=== PATIENT | female | born 1970 | race Caucasian/White ===

== ENCOUNTER 2019-04-17 16:21 | Emergency (ER) | payer MEDICAID, OTHER ==
[~2019-04-17] VITALS: Ht 172.7 cm; Wt 59.0 kg
[2019-04-17] MEDS ORDERED: NS IV 1000 ML 1,000 ML IV SCH (17:00)
[2019-04-17] MEDS ORDERED: ONDANSETRON 4 MG/2 ML (SDV) Z0FRAN IVP ONE (17:00)
[2019-04-17] MEDS ORDERED: KETOROLAC 30 MG/ML VIAL IVP ONE (17:00)
--- NOTE | 2019-04-17 17:00 | NUR ---
PATIENT HAS AREA ON CONCERN ON R LEG NO REDNESS OR SWELLING AT SITE. Addendum: 04/17/19 at 1751 by PMCCLURE C/O HEADACHE AND NECK HURTING.
--- NOTE | 2019-04-17 17:04 | ED Integumentary General ---
General Chief Complaint: Bite-Animal/Human/Insect Stated Complaint: HEADACHE,BUG BITE Nursing Triage Note: bug bites to both legs. x 1-2 weeks. also c/o h/a fever nausea and joint pains. thinks she has " melaria". Source: patient Exam Limitations: no limitations History of Present Illness Date Seen by Provider: Apr 17, 2019 Time Seen by Provider: 16:59 Initial Comments To ER with multiple insect bites to the lower extremities that are scabbed over contributing to her headaches joint pain nausea malaise. She states these are from insects about 2-3 weeks ago. She's been living in [facility] for 1-2 months after moving here from [place]. 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 She has an accent and claims this is from growing up in [place]. She has a headache, joint pains nausea diarrhea and general malaise. She reports that she has had a tick bite, this could also be malaria or West Nile virus (she has not traveled outside the country in many years). She wears a thumb spica brace on the right wrist and takes Keppra for complex regional pain syndrome in the right wrist where she wears the brace. She is wearing a winter coat on arrival on April 17. She arrives with a duffel bag and a diary. Timing/Duration: constant Severity: moderate Location: extremities Associated Symptoms: denies symptoms Allergies and Home Medications Allergies Coded Allergies: diphenhydramine (Verified Allergy, Unknown, 04/17/19) epinephrine (Verified Allergy, Unknown, 04/17/19) hydrocodone (Verified Allergy, Unknown, 04/17/19) iodine (Verified Allergy, Unknown, 04/17/19) Uncoded Allergies: eggs (Allergy, Unknown, 04/17/19) penicillin (Allergy, Unknown, 04/17/19) Home Medications Doxycycline Hyclate 100 Mg Tablet, 100 MG PO BID Prescribed by: MELISSA MARINA on 04/17/19 [id number] Patient Home Medication List Home Medication List Reviewed: Yes Review of Systems Review of Systems Constitutional: see HPI, chills, malaise, weakness EENTM: see HPI Respiratory: no symptoms reported Cardiovascular: no symptoms reported Genitourinary: no symptoms reported Musculoskeletal: see HPI, joint pain Skin: see HPI, rash Psychiatric/Neurological: No Symptoms Reported Endocrine: No Symptoms Reported Hematologic/Lymphatic: No Symptoms Reported Past Nuwdyiq-Ztzppl-Sqpjdm Hx Patient Social History Alcohol Use: Denies Use Recreational Drug Use: No Smoking Status: Never a Smoker Recent Foreign Travel: No Contact w/Someone Who Travel: No Recent Infectious Disease Expo: No Physical Abuse: No Sexual Abuse: No Physical Exam Vital Signs Vital Signs - First Documented 04/17/19 16:35 Temp 96.5 Pulse 64 Resp 20 B/P (MAP) 113/72 (86) Pulse Ox 98 O2 Delivery Room Air Capillary Refill : Less Than 3 Seconds General Appearance: WD/WN, no apparent distress, other (very pleasant, her presentation and self-reported history is a bit grandiose and somewhat bizarre.) HEENT: PERRL/EOMI, normal ENT inspection, TMs normal Neck: non-tender, full range of motion; No lymphadenopathy (R), No lymphad enopathy (L) Respiratory: normal breath sounds, no respiratory distress, no accessory muscle use Gastrointestinal: normal bowel sounds, non tender Neurologic/Psychiatric: alert, normal mood/affect, oriented x 3 Skin: normal color, warm/dry, other (a few scabbed over slightly erythematous wounds no larger than a half centimeters to the anterior lower legs bilaterally) Skin Problem Location: lower extremities Progress/Results/Core Measures Results/Orders Lab Results Laboratory Tests Test 04/17/19 16:57 04/17/19 17:00 Range/Units Urine Color YELLOW Urine Clarity CLEAR Urine pH 7 5-9 Urine Specific Muir 1.010 L 1.016-1.022 Urine Protein NEGATIVE NEGATIVE Urine Glucose (UA) NEGATIVE NEGATIVE Urine Ketones 1+ H NEGATIVE Urine Nitrite NEGATIVE NEGATIVE Urine Bilirubin NEGATIVE NEGATIVE Urine Urobilinogen NORMAL NORMAL MG/DL Urine Leukocyte Esterase 1+ H NEGATIVE Urine RBC (Auto) 3+ H NEGATIVE Urine RBC 10-25 H /HPF Urine WBC 2-5 /HPF Urine Squamous Epithelial Cells 5-10 /HPF Urine Crystals NONE /LPF Urine Bacteria FEW H /HPF Urine Casts NONE /LPF Urine Mucus NEGATIVE /LPF Urine Culture Indicated YES Urine Test NEGATIVE NEGATIVE Urine Opiates Screen NEGATIVE NEGATIVE Urine Oxycodone Screen NEGATIVE NEGATIVE Urine Methadone Screen NEGATIVE NEGATIVE Urine Propoxyphene Screen NEGATIVE NEGATIVE Urine Barbiturates Screen NEGATIVE NEGATIVE Ur Tricyclic Antidepressants Screen NEGATIVE NEGATIVE Urine Phencyclidine Screen NEGATIVE NEGATIVE Urine Amphetamines Screen NEGATIVE NEGATIVE Urine Methamphetamines Screen NEGATIVE NEGATIVE Urine Benzodiazepines Screen NEGATIVE NEGATIVE Urine Cocaine Screen NEGATIVE NEGATIVE Urine Cannabinoids Screen NEGATIVE NEGATIVE White Blood Count 8.9 4.3-11.0 10^3/uL Red Blood Count 4.59 4.35-5.85 10^6/uL Hemoglobin 13.2 11.5-16.0 G/DL Hematocrit 40 35-52 % Mean Corpuscular Volume 86 80-99 FL Mean Corpuscular Hemoglobin 29 25-34 PG Mean Corpuscular Hemoglobin Concent 33 32-36 G/DL Red Cell Distribution Width 12.9 10.0-14.5 % Platelet Count 288 130-400 10^3/uL Mean Platelet Volume 9.7 7.4-10.4 FL Neutrophils (%) (Auto) 55 42-75 % Lymphocytes (%) (Auto) 33 12-44 % Monocytes (%) (Auto) 10 0-12 % Eosinophils (%) (Auto) 2 0-10 % Basophils (%) (Auto) 0 0-10 % Neutrophils # (Auto) 4.9 1.8-7.8 X 10^3 Lymphocytes # (Auto) 3.0 1.0-4.0 X 10^3 Monocytes # (Auto) 0.8 0.0-1.0 X 10^3 Eosinophils # (Auto) 0.2 0.0-0.3 10^3/uL Basophils # (Auto) 0.0 0.0-0.1 10^3/uL Sodium Level 140 135-145 MMOL/L Potassium Level 3.9 3.6-5.0 MMOL/L Chloride Level 110 H 98-107 MMOL/L Carbon Dioxide Level 20 L 21-32 MMOL/L Anion Gap 10 5-14 MMOL/L Blood Urea Nitrogen 14 7-18 MG/DL Creatinine 0.74 0.60-1.30 MG/DL Estimat Glomerular Filtration Rate > 60 BUN/Creatinine Ratio 19 Glucose Level 99 70-105 MG/DL Calcium Level 9.3 8.5-10.1 MG/DL Corrected Calcium 9.1 8.5-10.1 MG/DL Total Bilirubin 0.2 0.1-1.0 MG/DL Aspartate Amino Transf (AST/SGOT) 18 5-34 U/L Alanine Aminotransferase (ALT/SGPT) 21 0-55 U/L Alkaline Phosphatase 63 40-136 U/L C-Reactive Protein High Sensitivity 0.21 0.00-0.50 MG/DL Total Protein 7.5 6.4-8.2 GM/DL Albumin 4.3 3.2-4.5 GM/DL My Orders Orders - MELISSA MARINA APRN Ua Culture If Indicated (04/17/19 16:46) Drug Screen Stat (Urine) (04/17/19 16:46) Cbc With Automated Diff (04/17/19 16:46) Comprehensive Metabolic Panel (04/17/19 16:46) West Nile Virus Igg & M (04/17/19 16:46) Tick Panel With Lyme Eia (04/17/19 16:46) Ns Iv 1000 Ml (Sodium Chloride 0.9%) (04/17/19 17:00) Ondansetron Injection (Zofran Injectio (04/17/19 17:00) Ketorolac Injection (Toradol Injection) (04/17/19 17:00) Urine Culture (04/17/19 16:57) Erythrocyte Sedimentation Rate (04/17/19 17:33) Hs C Reactive Protein (04/17/19 17:33) Hcg,Qualitative Urine (04/17/19 17:37) Ct Head Wo (04/17/19 17:38) Medications Given in ED Current Medications Medications Dose Ordered Sig/Syed Route Start Time Stop Time Status Last Admin Dose Admin Ketorolac Tromethamine 15 mg ONCE ONCE IVP 04/17/19 17:00 04/17/19 17:01 DC 04/17/19 17:10 15 MG Ondansetron HCl 8 mg ONCE ONCE IVP 04/17/19 17:00 04/17/19 17:01 DC 04/17/19 17:09 8 MG Vital Signs/I&O 04/17/19 16:35 Temp 96.5 Pulse 64 Resp 20 B/P (MAP) 113/72 (86) Pulse Ox 98 O2 Delivery Room Air Blood Pressure Mean: 86 Departure Communication (Admissions) She states that she has been taking the metronidazole left over for the past 2 days which has helped quite a bit with her diarrhea. Impression Primary Impression: general malaise Additional Impressions: Joint pain Qualified Codes: M25.50 - Pain in unspecified joint Insect bite Qualified Codes: S80.869A - Insect bite (nonvenomous), unspecified lower leg, initial encounter; W57.XXXA - Bitten or stung by nonvenomous insect and other nonvenomous arthropods, initial encounter Disposition: 01 HOME, SELF-CARE Condition: Stable Departure-Patient Inst. Decision time for Depature: 17:34 Referrals: MARYBEL GIRON MD,LORENZO FRAZIER,NELIA DILLON,JESSY OLVERA,LOCAL PHYSICIAN (PCP) Primary Care Physician DEE DOSHI MD,JAZIEL REDDY,GUNNAR WOOD Patient Instructions: Insect Bites and Stings Add. Discharge Instructions: 1. The West Nile virus and tick panel take a few days to come back. We will call you if these are positive. Take antibiotics as directed in the meantime. Follow- up with one of the physicians listed. All discharge instructions reviewed with patient and/or family. Voiced understanding. Scripts Metronidazole (Metronidazole) 500 Mg Tablet 500 MG PO TID, #14 TAB 0 Refills Prov: MELISSA MARINA APRN 04/17/19 Doxycycline Hyclate (Doxycycline Hyclate) 100 Mg Tablet 100 MG PO BID, #20 TAB 0 Refills Prov: MELISSA MARINA APRN 04/17/19 MELISSA MARINA APRN Apr 17, 2019 17:04
[2019-04-17 17:08] LABS: BILIRUBIN,URINE NEGATIVE (NEGATIVE); CLARITY,URINE CLEAR; COLOR,URINE YELLOW; GLUCOSE, URINE (UA) NEGATIVE (NEGATIVE); KETONES,URINE 1+ (NEGATIVE); LEUKOCYTE ESTERASE ,URINE 1+ (NEGATIVE); NITRITE,URINE NEGATIVE (NEGATIVE); PH,URINE 7 (5-9); PROTEIN,URINE NEGATIVE (NEGATIVE); UROBILINOGEN,URINE NORMAL (NORMAL)
[2019-04-17 17:10] LABS: BASOPHILS % (AUTO) 0 % (0-10); EOSINOPHILS # (AUTO) 0.2 10^3/uL (0.0-0.3); EOSINOPHILS % (AUTO) 2 % (0-10); HEMATOCRIT 40 % (35-52); HEMOGLOBIN 13.2 G/DL (11.5-16.0); LYMPHOCYTES % (AUTO) 33 % (12-44); MEAN CORPUSCULAR HEMOGLOBIN 29 PG (25-34); MEAN CORPUSCULAR HGB CONC 33 G/DL (32-36); MEAN CORPUSCULAR VOLUME 86 FL (80-99); MEAN PLATELET VOLUME 9.7 FL (7.4-10.4); MONOCYTES # (AUTO) 0.8 X 10^3 (0.0-1.0); MONOCYTES % (AUTO) 10 % (0-12); NEUTROPHILS # (AUTO) 4.9 X 10^3 (1.8-7.8); NEUTROPHILS % (AUTO) 55 % (42-75); PLATELET COUNT 288 10^3/uL (130-400); RED CELL DISTRIBUTION WIDTH 12.9 % (10.0-14.5); WHITE BLOOD COUNT 8.9 10^3/uL (4.3-11.0)
[2019-04-17 17:20] LABS: BACTERIA,URINE FEW /HPF
[2019-04-17 17:23] LABS: AMPHETAMINE SCREEN, URINE NEGATIVE (NEGATIVE); BARBITURATE SCREEN URINE NEGATIVE (NEGATIVE); BENZODIAZEPINES SCREEN URINE NEGATIVE (NEGATIVE); CANNABINOID SCREEN, URINE NEGATIVE (NEGATIVE); COCAINE SCREEN URINE NEGATIVE (NEGATIVE); METHADONE STAT NEGATIVE (NEGATIVE); METHAMPHETAMINE SCREEN URINE S NEGATIVE (NEGATIVE); OPIATE SCREEN URINE NEGATIVE (NEGATIVE); OXYCODONE STAT NEGATIVE (NEGATIVE); PROPOXYPHENE STAT NEGATIVE (NEGATIVE); TRICYCLIC ANTIDEPRESSANTS SCRE NEGATIVE (NEGATIVE)
[2019-04-17 17:28] LABS: ALANINE AMINOTRANSFERASE 21 U/L (0-55); ALBUMIN 4.3 GM/DL (3.2-4.5); ALKALINE PHOSPHATASE 63 U/L (40-136); BILIRUBIN,TOTAL 0.2 MG/DL (0.1-1.0); BUN/CREATININE RATIO 19; CALCIUM 9.3 MG/DL (8.5-10.1); CARBON DIOXIDE 20 MMOL/L (21-32); CHLORIDE 110 MMOL/L (98-107); CREATININE SERUM 0.74 MG/DL (0.60-1.30); GFR ESTIMATED > 60; GLUCOSE 99 MG/DL (70-105); POTASSIUM 3.9 MMOL/L (3.6-5.0); SODIUM 140 MMOL/L (135-145); TOTAL PROTEIN 7.5 GM/DL (6.4-8.2)
--- NOTE | 2019-04-17 17:34 | NUR ---
TO ROOM FLUIDS INFUISNG REPORTS THAT HEADACHE BETTER.
[2019-04-17] MEDS ORDERED: DOXY100T2 PO (17:36)
--- NOTE | 2019-04-17 17:50 | NUR ---
TO CT PER W/C
[2019-04-17] MEDS ORDERED: METR-145 PO (17:54)
[2019-04-17 18:37] VITALS: BP 121/62
--- NOTE | 2019-04-17 18:40 | Diagnostic Imaging Report ---
PROCEDURE: CT head without contrast. TECHNIQUE: Multiple contiguous axial images were obtained through the brain without the use of intravenous contrast. Auto Exposure Controls were utilized during the CT exam to meet ALARA standards for radiation dose reduction. INDICATION: 48-year-old female with headache, fever, nausea, and joint pain. COMPARISONS: None. FINDINGS: Midline structures are not displaced. Lateral, third and fourth ventricles are normal in size, shape, and anatomic position. There is no evidence of mass, mass effect, hydrocephalus, or hemorrhage. Mendieta-white differentiation is normal. There is no sulcal effacement. There are no abnormal extra-axial fluid collections or hemorrhage. Basilar cisterns appear normal. Sinuses, orbits, and mastoid air cells are unremarkable. Bone windows show no calvarial changes. IMPRESSION: Essentially unremarkable nonenhanced CT head. If symptoms warrant or persist, an MRI brain may be of further value. Dictated by: Dictated on workstation # [id number]
== END 2019-04-17 18:37 | disposition home or self-care (01) ==
LOC: ER 16:23
DX: S80.861A Insect bite (nonvenomous), right lower leg, initial encounter (principal); S80.862A Insect bite (nonvenomous), left lower leg, initial encounter; R53.81 Other malaise; M25.50 Pain in unspecified joint; Z88.5 Allergy status to narcotic agent; Z91.041 Radiographic dye allergy status; Z88.0 Allergy status to penicillin; Z88.8 Allergy status to other drugs, medicaments and biological substances; W57.XXXA Bitten or stung by nonvenomous insect and other nonvenomous arthropods, initial encounter
CPT/HCPCS: 36415; 70450; 80053; 80306; 81000; 84703; 85025; 85652; 86141; 86618; 86666; 86668; 86757; 86788; 86789; 87088; 96361; 96374; 96375

== ENCOUNTER 2020-01-22 10:23 | Emergency (ER) | payer BC, MEDICAID ==
[~2020-01-22] VITALS: Ht 172 cm; Wt 74.6 kg
[~2020-01-22 10:23] MED LIST: DOXY100T2 PO; METR-145 PO
--- OUTSIDE RECORDS SUMMARY | 2020-01-22 11:01 | XMS REPORT | Continuity of Care Document ---
Author Organization Unknown Address Unknown Phone Unavailable Allergies Active Description Code Type Severity Reaction Onset Reported/Identified Relationship to Patient Clinical Status Yes diphenhydramine [id number] D rug Allergy Unknown N/A 04/17/2019 Yes eggs eggs Unknown N/A 04/17/2019 Yes epinephrine [id number] Drug Aller gy Unknown N/A 04/17/2019 Yes hydrocodone [id number] Drug Aller gy Unknown N/A 04/17/2019 Yes iodine [id number] Drug Allergy Unknown N/A 04/17/2019 Yes penicillin penicillin Unknown N/A 04/17/2019 Medications There is no data. Problems Date Dx Coded Attending Type Code Diagnosis Diagnosed By 04/17/2019 MELISSA MARINA APRN Ot M25.50 PAIN IN UNSPECIFIED JOINT 04/17/2019 MELISSA MARINA APRN Ot R51 HEADACHE 04/17/2019 MELISSA MARINA APRN Ot R53.81 OTHER MALAISE 04/17/2019 MELISSA MARINA APRN Ot S80.861A INSECT BITE (NONVENOMOUS), RIGHT LOWER L 04/17/2019 MELISSA MARINA APRN Ot S80.862A INSECT BITE (NONVENOMOUS), LEFT LOWER LE 04/17/2019 MELISSA MARINA APRN Ot W57.XXXA BIT/STUNG BY NONVENOM INSECT OTH NONVE 04/17/2019 MELISSA MARINA APRN Ot Z88 .0 ALLERGY STATUS TO PENICILLIN 04/17/2019 MELISSA MARINA APRN Ot Z88 .5 ALLERGY STATUS TO NARCOTIC AGENT STATUS 04/17/2019 MELISSA MARINA APRN Ot Z88 .8 ALLERGY STATUS TO OT DRUG/MEDS/BIOL SUB 04/17/2019 MELISSA MARINA APRN Ot Z91.041 RADIOGRAPHIC DYE ALLERGY STATUS 04/21/2019 MELISSA MARINA APRN Ot M25.50 PAIN IN UNSPECIFIED JOINT 04/21/2019 MELISSA MARINA APRN Ot R51 HEADACHE 04/21/2019 MELISSA MARINA APRN Ot R53.81 OTHER MALAISE 04/21/2019 MELISSA MARINA APRN Ot S80.861A INSECT BITE (NONVENOMOUS), RIGHT LOWER L 04/21/2019 MELISSA MARINA APRN Ot S80.862A INSECT BITE (NONVENOMOUS), LEFT LOWER LE 04/21/2019 MELISSA MARINA APRN Ot W57.XXXA BIT/STUNG BY NONVENOM INSECT OTH NONVE 04/21/2019 MELISSA MARINA APRN Ot Z88 .0 ALLERGY STATUS TO PENICILLIN 04/21/2019 MELISSA MARINA APRN Ot Z88 .5 ALLERGY STATUS TO NARCOTIC AGENT STATUS 04/21/2019 MELISSA MARINA APRN Ot Z88 .8 ALLERGY STATUS TO OTH DRUG/MEDS/BIOL SUB 04/21/2019 MELISSA MARINA APRN Ot Z91.041 RADIOGRAPHIC DYE ALLERGY STATUS Procedures There is no data. Results Test Result Range Complete urinalysis with reflex to cultu re - 04/17/19 16:57 Urine color determination YELLOW NRG Urine clarity determination CLEAR NR G Urine pH measurement by test strip 7 5-9 Specific gravity of urine by test strip 1.010 1.016-1.022 Urine protein assay by test strip, semi-quantitative NEGATIVE NEGATIVE Urine glucose detection by automated test strip NE GATIVE NEGATIVE Erythrocytes detection in urine sediment by light micr oscopy 3+ NEGATIVE Urine ketones detection by automated test strip 1+ NEGATIVE Urine nitrite detection by test strip NEGATIVE NEGATIVE Urine total bilirubin detection by test strip NEGA TIVE NEGATIVE Urine urobilinogen measurement by automated test strip (mass/volume) NORMAL NORMAL Urine leukocyte esterase detection by dipstick 1+ NEGATIVE Automated urine sediment erythrocyte cou nt by microscopy (number/high power field) [HPF] NRG Automated urine sediment leukocyte count by microscopy (number/high power field) [HPF] NRG Bacteria detection in urine sediment by light microsco py FEW NRG Squamous epithelial cells detection in u rine sediment by light microscopy 5-10 NRG Crystals detection in urine sediment by light microsco py NONE NRG Casts detection in urine sediment by light microscopy NONE NRG Mucus detection in urine sediment by light microscopy NEGATIVE NRG Complete urinalysis with reflex to culture YES NRG Urine drug screening test - 04/17/19 16: 57 Urine phencyclidine detection by screening method NEGATIVE NEGATIVE Urine benzodiazepines detection by screening method NEGATIVE NEGATIVE Urine cocaine detection NEGATIVE NEGATI VE Urine amphetamines detection by screening method N EGATIVE NEGATIVE Urine methamphetamine detection by screening method NEGATIVE NEGATIVE Urine cannabinoids detection by screening method N EGATIVE NEGATIVE Urine opiates detection by screening method NEGATI VE NEGATIVE Urine barbiturates detection NEGATIVE N EGATIVE Screening urine tricyclic antidepressants detection NEGATIVE NEGATIVE Urine methadone detection by screening method NEGA TIVE NEGATIVE Urine oxycodone detection NEGATIVE NEGA TIVE Urine propoxyphene detection NEGATIVE N EGATIVE Urine beta human chorionic gonadotropin (hCG) measurement - 04/17/19 16:57 Urine beta human chorionic gonadotropin (hCG) measurem ent NEGATIVE NEGATIVE Bacterial urine culture - 04/17/19 16:57 Bacterial urine culture NG NRG Complete blood count (CBC) with automate d white blood cell (WBC) differential - 04/17/19 17:00 Blood leukocytes automated count (number/volume) 8.9 10*3/uL 4.3-11.0 Blood erythrocytes automated count (number/volume) 4.59 10*6/uL 4.35-5.85 Venous blood hemoglobin measurement (mass/volume) 13.2 g/dL 11.5-16.0 Blood hematocrit (volume fraction) 40 % 35-52 Automated erythrocyte mean corpuscular volume 86 [ foz_us] 80-99 Automated erythrocyte mean corpuscular h emoglobin (mass per erythrocyte) 29 pg 25-34 Automated erythrocyte mean corpuscular h emoglobin concentration measurement (mass/volume) 33 g/dL 32-36 Automated erythrocyte distribution width ratio 12. 9 % 10.0- 14.5 Automated blood platelet count (count/volume) 288 10*3/uL 130-400 Automated blood platelet mean volume measurement 9.7 [foz_us] 7.4-10.4 Automated blood neutrophils/100 leukocytes 55 % 42-75 Automated blood lymphocytes/100 leukocytes 33 % 12-44 Blood monocytes/100 leukocytes 10 % 0-12 Automated blood eosinophils/100 leukocytes 2 % 0-10 Automated blood basophils/100 leukocytes 0 % 0-10 Blood neutrophils automated count (number/volume) 4.9 10*3 1.8-7.8 Blood lymphocytes automated count (number/volume) 3.0 10*3 1.0-4.0 Blood monocytes automated count (number/volume) 0. 8 10*3 0.0-1.0 Automated eosinophil count 0.2 10*3/uL 0 .0-0.3 Automated blood basophil count (count/volume) 0.0 10*3/uL 0.0-0.1 Comprehensive metabolic panel - 04/17/19 17:00 Serum or plasma sodium measurement (moles/volume) 140 mmol/L 135-145 Serum or plasma potassium measurement (moles/volume) 3.9 mmol/L 3.6-5.0 Serum or plasma chloride measurement (moles/volume) 110 mmol/L 98-107 Carbon dioxide 20 mmol/L 21-32 Serum or plasma anion gap determination (moles/volume) 10 mmol/L 5-14 Serum or plasma urea nitrogen measurement (mass/volume ) 14 mg/dL 7-18 Serum or plasma creatinine measurement (mass/volume) 0.74 mg/dL 0.60-1.30 Serum or plasma urea nitrogen/creatinine mass ratio 19 NRG Serum or plasma creatinine measurement w ith calculation of estimated glomerular filtration rate > NRG Serum or plasma glucose measurement (mass/volume) 99 mg/dL 70-105 Serum or plasma calcium measurement (mass/volume) 9.3 mg/dL 8.5-10.1 Serum or plasma total bilirubin measurement (mass/volu me) 0.2 mg/dL 0.1-1.0 Serum or plasma alkaline phosphatase lucia surement (enzymatic activity/volume) 63 U/L 40-136 Serum or plasma aspartate aminotransfera se measurement (enzymatic activity/volume) 18 U/L 5-34 Serum or plasma alanine aminotransferase measurement (enzymatic activity/volume) 21 U/L 0-55 Serum or plasma protein measurement (mass/volume) 7.5 g/dL 6.4-8.2 Serum or plasma albumin measurement (mass/volume) 4.3 g/dL 3.2-4.5 CALCIUM CORRECTED 9.1 mg/dL 8.5-10.1 Serum or plasma C reactive protein measu rement (mass/volume) - 04/17/19 17:00 Serum or plasma C reactive protein measurement (mass/v olume) 0.21 mg/dL 0.00-0.50 Erythrocyte sedimentation rate by shy gren method - 04/17/19 17:00 Erythrocyte sedimentation rate by westergren method 9 mm 0- 20 Tick identification panel - 04/17/19 17: 00 Serum Ehrlichia chaffeensis IgG antibody detection <1:16 <1:16 Serum Ehrlichia chaffeensis IgM antibody detection <1:10 <1:10 Serum Rickettsia rickettsii IgG antibody assay (units/ volume) < <1:16 [place] spotted fever panel < <1:10 Francisella tularensis antibody assay <1:20 NRG LYME AB G M 0.31 % 0.00-0.89 Interpretation of Lyme disease antibody assay Nega tive Negative West Nile virus antibody panel (IgG and IgM) - 04/17/19 17:00 Serum West Nile virus IgM antibody assay 0.01 % 0.00-0.89 West Nile virus IgG antibody detection 0.35 0.00-1.29 Encounters ACCT No. Visit Date/Time Discharge Status Pt. Type Provider Facility Loc./Unit Complaint [id number] 04/17/2019 16:23:00 019 18:37:00 DIS Emergency MELISSA MARINA APRN [facility] ER HEADACHE,BUG BITE
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
--- NOTE | 2020-01-22 11:55 | Diagnostic Imaging Report ---
Left shoulder 11:44. Indication: Shoulder pain 3 views were obtained. There are no prior studies available for comparison. There is no fracture, dislocation or acute bony abnormality evident. The glenohumeral joint is fairly well maintained but there is moderate degenerative disease of the acromioclavicular joint. The soft tissues are unremarkable. Impression: There is no evidence of acute bony abnormality. . Dictated by: Dictated on workstation # [id number]
--- NOTE | 2020-01-22 11:57 | NUR ---
PT REQUEST PAIN MEDS. LUISITO NOTIFIED.
--- NOTE | 2020-01-22 11:58 | Diagnostic Imaging Report ---
INDICATION: Hand pain status post injury. COMPARISON: None. FINDINGS: Three views of the left hand were obtained and show no fractures, dislocations, or other acute bony abnormalities. Joint spaces are well maintained throughout. The soft tissues appear unremarkable. No radiopaque foreign bodies are identified. IMPRESSION: Unremarkable radiographic exam of the left hand. Dictated by: Dictated on workstation # [id number]
--- NOTE | 2020-01-22 11:59 | Diagnostic Imaging Report ---
EXAM: Pelvis and left hip at 11:47 a.m. INDICATION: Pelvic pain TECHNIQUE: A single AP view of the pelvis and AP and lateral views of the left hip were obtained. COMPARISON: There are no prior studies available for comparison. FINDINGS: There is no fracture, dislocation or acute bony abnormality evident. The hip and sacroiliac joints are fairly well-maintained. There is a herniation pit in the left femoral neck. This is a developmental variant. The soft tissues are unremarkable. IMPRESSION: There is no evidence for an acute bony abnormality. Dictated by: Dictated on workstation # [id number]
--- NOTE | 2020-01-22 12:03 | Diagnostic Imaging Report ---
EXAM: Bilateral wrists at 11:47 a.m. INDICATION: Injury. TECHNIQUE: 3 views of both wrists were obtained. COMPARISON: There are no prior studies for comparison FINDINGS: The images of the left wrist show a small linear band of increased density in the subarticular region of the midportion of the distal radial metaphysis. This finding is of uncertain etiology. This could represent a minimal impaction fracture. No other fracture or acute abnormality is noted otherwise. There is no fracture or acute bony abnormality of the right wrist either. There is no significant degenerative disease of the radiocarpal joints and the soft tissues are unremarkable. IMPRESSION: 1. There is a question of a minimal impaction fracture involving the distal radial metaphysis on the left. If further imaging is desired, then either CT or MRI would be recommended. 2. There is no acute bony abnormality of either wrist noted otherwise. Dictated by: Dictated on workstation # [id number]
[2020-01-22] MEDS ORDERED: KETOROLAC 60 MG/2 ML VIAL IM STA (12:11)
[2020-01-22 12:50] VITALS: BP 127/82
== END 2020-01-22 12:50 | disposition home or self-care (01) ==
LOC: EDUNIT# 10:23 → ER 10:25
DX: S62.102A Fracture of unspecified carpal bone, left wrist, initial encounter for closed fracture (principal); S40.022A Contusion of left upper arm, initial encounter; M25.552 Pain in left hip; Z88.8 Allergy status to other drugs, medicaments and biological substances; Z88.0 Allergy status to penicillin; Z88.5 Allergy status to narcotic agent; Y08.89XA Assault by other specified means, initial encounter
CPT/HCPCS: 71046; 73030; 73130; 96372

== ENCOUNTER 2020-03-06 09:21 | Emergency (ER) | payer SELFPAY ==
[~2020-03-06] VITALS: Ht 172 cm; Wt 74.6 kg
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
[2020-03-06] MEDS ORDERED: PROP20TA5 PO (10:18)
[2020-03-06] MEDS ORDERED: LEVE250T18 PO (10:18)
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
[2020-03-06] MEDS ORDERED: CEPH500T PO (10:36)
--- NOTE | 2020-03-06 11:12 | Diagnostic Imaging Report ---
HISTORY: Left forearm pain since injury 6 weeks ago TECHNIQUE: 2 views of the left forearm COMPARISON: None FINDINGS: No acute fracture or dislocation is seen in the left forearm. Alignment appears normal. Joint spaces are preserved. No significant elbow joint effusion is seen. IMPRESSION: 1. No acute osseous abnormality is seen in the left forearm. Dictated by: Dictated on workstation # [id number]
[2020-03-06 11:35] VITALS: BP 150/89
== END 2020-03-06 11:35 | disposition home or self-care (01) ==
LOC: EDUNIT# 09:21 → ER 09:24
DX: L03.114 Cellulitis of left upper limb (principal); Z87.81 Personal history of (healed) traumatic fracture; Z88.0 Allergy status to penicillin; Z88.5 Allergy status to narcotic agent; Z88.8 Allergy status to other drugs, medicaments and biological substances
CPT/HCPCS: 73090